=== PATIENT | female | born 1990 | race Caucasian/White ===

== ENCOUNTER → 2016-12-09 | Outpatient (CLI) | payer BC ==
[~2016-12-09] MED LIST: FEOSOL325 MG PO; GLUCOPHAGE XR750 M1 PO; MOTRIN800 MG PO; PERCOCET 5-3251 EACH PO; VITAMIN D-32000 UNI1 PO
== END | disposition disaster alternative care site (69) ==
LOC: GLAB 09:00
DX: Z01.83 Encounter for blood typing (principal); Z32.00 Encounter for pregnancy test, result unknown